=== PATIENT | female | born 1985 | race Asian ===

== ENCOUNTER 2020-11-08 10:24 | Emergency (ER) | payer MEDICAID ==
[~2020-11-08] VITALS: Ht 160 cm; Wt 50.8 kg
[~2020-11-08 10:24] MED LIST: ASCO500T11 PO; BIOT5TAB3 PO
[2020-11-08 10:48] VITALS: BP 111/75
[2020-11-08] MEDS ORDERED: SODIUM CHLORIDE 0.9% 1,000 ML IV ONE (13:30)
== END 2020-11-08 14:47 | disposition home or self-care (01) ==
LOC: ER 10:24
DX: J06.9 Acute upper respiratory infection, unspecified (principal); Z20.822 Contact with and (suspected) exposure to COVID-19
CPT/HCPCS: 36415; 87070; 87426; 87880; 99283; C9803; U0003

== ENCOUNTER 2021-03-10 17:10 | Emergency (ER) | payer MEDICAID ==
[~2021-03-10] VITALS: Ht 160 cm; Wt 52.2 kg
[~2021-03-10 17:10] MED LIST changes: -HALOPERIDOL LACTATE 5 MG/ML INJ VIAL ONE; -LORazepam 2MG/ML-1ML VIAL ONE; -diphenhdrAMINE HCL 50 MG/1 ML VL ONE
[2021-03-10 18:35] VITALS: BP 108/68
== END 2021-03-10 18:40 | disposition home or self-care (01) ==
LOC: ER 17:10
DX: N64.4 Mastodynia (principal); Z79.899 Other long term (current) drug therapy

== ENCOUNTER → 2021-03-10 | Emergency (ER) | payer MEDICAID ==
[~2021-03-10] MED LIST changes: +HALOPERIDOL LACTATE 5 MG/ML INJ VIAL ONE; +LORazepam 2MG/ML-1ML VIAL ONE; +diphenhdrAMINE HCL 50 MG/1 ML VL ONE
== END | disposition left against medical advice (07) ==
LOC: ER 16:55
DX: N64.4 Mastodynia (principal); Z53.21 Procedure and treatment not carried out due to patient leaving prior to being seen by health care provider

== ENCOUNTER 2021-07-19 16:58 | Inpatient (IN) | payer MEDICAID, OTHER ==
[~2021-07-19] VITALS: Ht 160 cm; Wt 57.7 kg
[2021-07-19] MEDS ORDERED: MORPHINE SULFATE 4 MG/ML SYR/VIAL IV ONE (17:45)
[2021-07-19] MEDS ORDERED: ONDANSETRON HCL 4 MG/2 ML VIAL IV ONE (17:45)
[2021-07-19] MEDS ORDERED: PANTOPRAZOLE 40 MG/10 ML VIAL INJ IV ONE (17:45)
[2021-07-19] MEDS ORDERED: SODIUM CHLORIDE 0.9% 1,000 ML IVB ONE (17:45)
[2021-07-19 19:29] LABS: Basophils # (auto) 0 10 ^3/uL (0-0.2); Basophils % (auto) 0.2 % (0.0-2.0); Eosinophils # (auto) 0 10 ^3/uL (0-0.8); Eosinophils % (auto) 0.3 % (0.0-7.0); Hematocrit 46.5 % (36.0-46.0); Hemoglobin 15.2 g/dL (12.2-16.2); Lymphocytes # (auto) 1.2 10 ^3/uL (0.4-5.4); Lymphocytes % (auto) 8.2 % (10.0-50.0); Mean Corpuscular Hemoglobin 29.5 pg (28.0-32.0); Mean Corpuscular Hgb Conc. 32.7 g/dL (32.0-36.0); Mean Corpuscular Volume 90.2 fL (80.0-100.0); Monocytes # (auto) 0.5 10 ^3/uL (0-1.3); Monocytes % (auto) 3.3 % (0.0-12.0); Neutrophils # (auto) 12.7 10 ^3/uL (1.6-8.6); Red Blood Cells 5.16 10^6/uL (4.0-5.20); Red Cell Distribution Width 13.4 % (11.8-14.3); White Blood Cell 14.4 10^3/uL (4.4-10.8)
[2021-07-19 19:48] LABS: Albumin 4.3 g/dL (3.4-5.0); Calcium 9.4 mg/dL (8.5-10.1); Potassium 4.2 mmol/L (3.5-5.1)
[2021-07-19 19:51] LABS: BUN/Creatinine Ratio 17.7; Bilirubin, Total 0.4 mg/dL (0.2-1.0); Total Protein 8.7 g/dL (6.4-8.2)
[2021-07-19 20:22] LABS: Urine Bacteria FEW /hpf (None Seen); Urine Blood Negative /uL (Negative); Urine Specific Gravity 1.019 (1.001-1.035); Urine WBC 1 /hpf (0 - 5)
[2021-07-19 20:37] LABS: Alcohol, Urine < 3.0 mg/dL (0-10); Amphetamine Screen, Urine NEGATIVE (NEGATIVE); Barbiturate Scree,Urine NEGATIVE (NEGATIVE); Benzodiazephine Screen, Urine NEGATIVE (NEGATIVE); Cannabinoid Screen, Urine NEGATIVE (NEGATIVE); Cocaine Screen, Urine NEGATIVE (NEGATIVE); Opiate Scree,Urine NEGATIVE (NEGATIVE); Phencyclidine Screen, Urine NEGATIVE (NEGATIVE)
[2021-07-20] MEDS ORDERED: MORPHINE SULFATE 4 MG/ML SYR/VIAL IV PRN (00:45)
[2021-07-20] MEDS ORDERED: ONDANSETRON HCL 4 MG/2 ML VIAL IV PRN (00:45)
[2021-07-20] MEDS: SODIUM CHLORIDE 0.9% 1,000 ML IV SCH (01:27)
[2021-07-20 02:44] VITALS: BP 130/80
[2021-07-20 05:00] VITALS: BP 103/62
[2021-07-20] MEDS ORDERED: GASTROGRAFIN 120 ML SOL ONE (07:21)
[2021-07-20 09:00] VITALS: BP 101/56
[2021-07-20] MEDS: PANTOPRAZOLE 40 MG/10 ML VIAL INJ IV SCH (10:09)
[2021-07-20 13:00] VITALS: BP 97/62
[2021-07-20 16:41] VITALS: BP 93/53
[2021-07-20 22:00] VITALS: BP 109/78
[2021-07-21] MEDS: SODIUM CHLORIDE 0.9% 1,000 ML IV SCH (01:26)
[2021-07-21 05:00] VITALS: BP 92/37
[2021-07-21 05:34] LABS: Basophils # (auto) 0 10 ^3/uL (0-0.2); Basophils % (auto) 0.6 % (0.0-2.0); Eosinophils # (auto) 0.2 10 ^3/uL (0-0.8); Eosinophils % (auto) 3.1 % (0.0-7.0); Hematocrit 37.4 % (36.0-46.0); Hemoglobin 12.3 g/dL (12.2-16.2); Lymphocytes # (auto) 2.8 10 ^3/uL (0.4-5.4); Lymphocytes % (auto) 45.4 % (10.0-50.0); Mean Corpuscular Hemoglobin 29.8 pg (28.0-32.0); Mean Corpuscular Hgb Conc. 32.9 g/dL (32.0-36.0); Mean Corpuscular Volume 90.6 fL (80.0-100.0); Monocytes # (auto) 0.7 10 ^3/uL (0-1.3); Monocytes % (auto) 10.8 % (0.0-12.0); Neutrophils # (auto) 2.5 10 ^3/uL (1.6-8.6); Neutrophils % (auto) 40.1 % (37.0-80.0); Red Blood Cells 4.13 10^6/uL (4.0-5.20); Red Cell Distribution Width 13.2 % (11.8-14.3); White Blood Cell 6.3 10^3/uL (4.4-10.8)
[2021-07-21 06:13] LABS: BUN/Creatinine Ratio 11.4
[2021-07-21 06:14] LABS: Albumin 3.2 g/dL (3.4-5.0); Bilirubin, Total 0.7 mg/dL (0.2-1.0); Calcium 8.7 mg/dL (8.5-10.1); Magnesium 2.3 mg/dL (1.6-2.6); Total Protein 6.4 g/dL (6.4-8.2)
[2021-07-21 08:00] VITALS: BP 100/52
[2021-07-21 08:30] VITALS: BP 100/52
[2021-07-21] MEDS: PANTOPRAZOLE 40 MG/10 ML VIAL INJ IV SCH (09:53)
[2021-07-21 13:30] VITALS: BP 95/60
[2021-07-21 17:05] VITALS: BP 95/60
== END 2021-07-21 18:25 | disposition home or self-care (01) | DRG 247 ==
LOC: ER 16:58 → OVERFLOW 07-20 00:44 → CENTRAL 07-20 02:00
PROVIDERS: ADMIT Nurse Practitioner; ATTEND Internal Medicine
DX: K56.609 Unspecified intestinal obstruction, unspecified as to partial versus complete obstruction (principal); R65.10 Systemic inflammatory response syndrome (SIRS) of non-infectious origin without acute organ dysfunction; H91.90 Unspecified hearing loss, unspecified ear; Z20.822 Contact with and (suspected) exposure to COVID-19; B94.8 Sequelae of other specified infectious and parasitic diseases
CPT/HCPCS: 36415; 74176; 74250; 80053; 80307; 81001; 83690; 83735; 84702; 85025; 87426; 96361; 96374; 96375; C9113; G0378; J2405

== ENCOUNTER 2022-07-16 17:34 | Emergency (ER) | payer OTHER ==
[~2022-07-16] VITALS: Ht 160 cm; Wt 56.8 kg
[2022-07-16 18:01] LABS: Basophils # (auto) 0 10 ^3/uL (0-0.2); Basophils % (auto) 0.6 % (0.0-2.0); Eosinophils # (auto) 0.2 10 ^3/uL (0-0.8); Eosinophils % (auto) 2.2 % (0.0-7.0); Hematocrit 42.6 % (36.0-46.0); Hemoglobin 13.5 g/dL (12.2-16.2); Lymphocytes # (auto) 2.2 10 ^3/uL (0.4-5.4); Lymphocytes % (auto) 30.4 % (10.0-50.0); Mean Corpuscular Hgb Conc. 31.8 g/dL (32.0-36.0); Mean Corpuscular Volume 88.1 fL (80.0-100.0); Monocytes # (auto) 0.7 10 ^3/uL (0-1.3); Neutrophils # (auto) 4.3 10 ^3/uL (1.6-8.6); Neutrophils % (auto) 57.8 % (37.0-80.0); Nucleated Red Blood Cells % 0.2 %; Red Blood Cells 4.84 10^6/uL (4.0-5.20); Red Cell Distribution Width 13.2 % (11.8-14.3); White Blood Cell 7.4 10^3/uL (4.4-10.8)
[2022-07-16 18:12] LABS: Calcium 9.5 mg/dL (8.5-10.1); Potassium 4.1 mmol/L (3.5-5.1)
[2022-07-16 18:15] LABS: BUN/Creatinine Ratio 22.2; Bilirubin, Total 0.4 mg/dL (0.2-1.0)
[2022-07-16 19:16] LABS: Urine WBC None Seen /hpf (0 - 5)
[2022-07-16 19:25] LABS: Urine Bacteria NONE SEEN /hpf (None Seen); Urine Blood Negative /uL (Negative); Urine Specific Gravity 1.013 (1.001-1.035)
[2022-07-16] MEDS ORDERED: KETOROLAC TROMETH 30 MG/ML 1ML VIAL IM ONE (19:30)
[2022-07-16 22:05] VITALS: BP 119/80
== END 2022-07-16 22:08 | disposition home or self-care (01) ==
LOC: ER 17:34
DX: R07.89 Other chest pain (principal); M25.511 Pain in right shoulder; Z79.899 Other long term (current) drug therapy
CPT/HCPCS: 36415; 71045; 80053; 81001; 81025; 84484; 84702; 85025; 93005; 96372; 99285; J1885

== ENCOUNTER 2022-07-21 11:42 | Emergency (ER) | payer OTHER ==
[~2022-07-21] VITALS: Ht 162.6 cm; Wt 61.3 kg
[2022-07-21 12:06] VITALS: BP 102/62
[2022-07-21 12:19] LABS: Basophils # (auto) 0 10 ^3/uL (0-0.2); Eosinophils # (auto) 0.2 10 ^3/uL (0-0.8); Eosinophils % (auto) 3.7 % (0.0-7.0); Hematocrit 40.6 % (36.0-46.0); Hemoglobin 13.1 g/dL (12.2-16.2); Lymphocytes % (auto) 24.7 % (10.0-50.0); Mean Corpuscular Hemoglobin 28.4 pg (28.0-32.0); Mean Corpuscular Hgb Conc. 32.3 g/dL (32.0-36.0); Mean Corpuscular Volume 87.9 fL (80.0-100.0); Monocytes # (auto) 0.5 10 ^3/uL (0-1.3); Monocytes % (auto) 11.9 % (0.0-12.0); Neutrophils # (auto) 2.4 10 ^3/uL (1.6-8.6); Neutrophils % (auto) 58.7 % (37.0-80.0); Nucleated Red Blood Cells % 0.1 %; Red Blood Cells 4.61 10^6/uL (4.0-5.20); Red Cell Distribution Width 13.2 % (11.8-14.3); White Blood Cell 4.1 10^3/uL (4.4-10.8)
[2022-07-21 12:22] LABS: Partial Thromboplastin Time 26.4 sec (24.6-33.4)
[2022-07-21] MEDS ORDERED: ACYC-166 PO (12:47)
[2022-07-21] MEDS ORDERED: IBUP800T27 PO (12:47)
[2022-07-21] MEDS ORDERED: TRIA0.02 TOP (12:47)
[2022-07-21] MEDS ORDERED: IBUPROFEN 800 MG TAB PO ONE (13:00)
== END 2022-07-21 12:55 | disposition home or self-care (01) ==
LOC: ER 11:42
DX: B02.9 Zoster without complications (principal)
CPT/HCPCS: 36415; 83880; 84443; 84484; 85025; 85610; 85730; 93005

== ENCOUNTER 2023-12-11 23:42 | Emergency (ER) | payer OTHER ==
[~2023-12-11] VITALS: Ht 160 cm; Wt 52.3 kg
[~2023-12-11 23:42] MED LIST changes: +ACYC1TAB3 PO; +AZITTAB PO; +IBUP-1456 PO; +TRIA0.02 TOP
[2023-12-12 02:22] LABS: Basophils # (auto) 0 10 ^3/uL (0-0.2); Basophils % (auto) 0.3 % (0.0-2.0); Eosinophils # (auto) 0.1 10 ^3/uL (0-0.8); Hematocrit 39.7 % (36.0-46.0); Hemoglobin 12.8 g/dL (12.2-16.2); Lymphocytes # (auto) 1.8 10 ^3/uL (0.4-5.4); Lymphocytes % (auto) 17.6 % (10.0-50.0); Mean Corpuscular Hemoglobin 28.8 pg (28.0-32.0); Mean Corpuscular Hgb Conc. 32.1 g/dL (32.0-36.0); Mean Corpuscular Volume 89.8 fL (80.0-100.0); Monocytes # (auto) 0.8 10 ^3/uL (0-1.3); Monocytes % (auto) 7.5 % (0.0-12.0); Neutrophils # (auto) 7.4 10 ^3/uL (1.6-8.6); Neutrophils % (auto) 73.6 % (37.0-80.0); Nucleated Red Blood Cells % 0.1 %; Red Blood Cells 4.43 10^6/uL (4.0-5.20); Red Cell Distribution Width 13.5 % (11.8-14.3); White Blood Cell 10.1 10^3/uL (4.4-10.8)
[2023-12-12 02:27] LABS: Chloride 104 mmol/L (98-107); Sodium 135 mmol/L (136-145)
[2023-12-12 02:28] LABS: Anion Gap 7 (5-15); Carbon Dioxide 24 mmol/L (20-30)
[2023-12-12 02:34] LABS: BUN/Creatinine Ratio 12.5 (10.0-20.0); Blood Urea Nitrogen 6 mg/dL (9-23); Glucose 105 mg/dL (74-106)
[2023-12-12] MEDS: SODIUM CHLORIDE 0.9% 1,000 ML IV ONE (03:13)
[2023-12-12 03:45] VITALS: BP 112/70; PULSE 69; RESP 18; TEMP 97.9; O2SAT 98
== END 2023-12-12 03:57 | disposition home or self-care (01) ==
LOC: ER 23:42 → EDBD 23:42 → ER 12-12 03:55
DX: O21.8 Other vomiting complicating pregnancy (principal); R19.7 Diarrhea, unspecified; Z3A.10 10 weeks gestation of pregnancy
CPT/HCPCS: 36415; 80048; 85025; 96360; 99283; J7030